=== PATIENT | male | born 1995 | race Caucasian/White ===

== ENCOUNTER 2017-04-08 19:46 | Emergency (ER) | payer SELFPAY ==
[~2017-04-08] VITALS: Ht 162.6 cm; Wt 64.0 kg
[2017-04-09] MEDS ORDERED: KETOROLAC 60MG/2ML VIAL IM ONE (01:30)
[2017-04-09 02:40] VITALS: BP 128/70
== END 2017-04-09 02:43 | disposition home or self-care (01) ==
LOC: ER 19:46
DX: S83.91XA Sprain of unspecified site of right knee, initial encounter (principal); F12.10 Cannabis abuse, uncomplicated; W50.0XXA Accidental hit or strike by another person, initial encounter; Y93.89 Activity, other specified; Y92.89 Other specified places as the place of occurrence of the external cause; Y99.8 Other external cause status
CPT/HCPCS: 73562; 96372; 99284; J1885; L1830; Z7610